=== PATIENT | male | born 1990 | race Caucasian/White ===

== ENCOUNTER 2019-11-23 19:11 | Emergency (ER) | payer OTHER ==
[~2019-11-23] VITALS: Ht 172.7 cm; Wt 70.0 kg
[2019-11-23 23:20] VITALS: BP 121/87
[2019-11-23] MEDS: TETANUS, DIPHTHERIA, PERTUSSIS VAC/PF 0.5ML (>7YR OLD) IM ONE (23:21)
[2019-11-23] MEDS: CEPHALEXIN 250MG CAPSULE PO ONE (23:22)
== END 2019-11-24 00:18 | disposition home or self-care (01) ==
LOC: ER 19:11
DX: S62.502A Fracture of unspecified phalanx of left thumb, initial encounter for closed fracture (principal); V29.49XA Motorcycle driver injured in collision with other motor vehicles in traffic accident, initial encounter; Y93.89 Activity, other specified; Y92.89 Other specified places as the place of occurrence of the external cause; Y99.8 Other external cause status; F15.10 Other stimulant abuse, uncomplicated; F12.10 Cannabis abuse, uncomplicated
CPT/HCPCS: 73130; 90471; 90715; 99284